=== PATIENT | female | born 1965 | race Caucasian/White ===

== ENCOUNTER 2020-10-26 10:46 | Emergency (ER) | payer SELFPAY ==
--- NOTE | ~2020-10-26 | CT_ITS ---
EXAMINATION: CT abdomen pelvis w con EXAM DATE: 10/26/2020 13:08 INDICATION: Epigastric pain. TECHNIQUE: Spiral CT of the abdomen and pelvis was performed following intravenous injection of 100 m L Omnipaque 350. Axial, coronal and sagittal images of the abdomen and pelvis were reviewed. The do se-length product (DLP) for this examination was 1485.14 mGy-cm. The exposure was tailored according to patient size (auto mA exposure control), and iterative reconstruction (ASIR) was used as addition al dose reduction technique. There is no prior study for comparison. FINDINGS: The liver, spleen, adrenal glands and pancreas are unremarkable. There are cholecystectomy clips. Portal and splenic veins are patent. Kidneys enhance symmetrically. There is no hydronephr osis. The uterus is not identified and has likely been surgically resected. The bladder is unremar kable. There is no retroperitoneal or pelvic lymphadenopathy. The appendix is not positively visualized. There is no pericecal inflammatory change to suggest appe ndicitis. The stomach and small bowel are unremarkable. There is colonic fluid, correlate for diar loli. There is mild to moderate sigmoid colonic diverticulosis. There is no adjacent inflammatory ch avani to suggest diverticulitis. No free intraperitoneal gas. The heart is normal in size. There a re no pericardial or pleural effusions. Left lower lobe calcified granuloma. There are no osteoblas tic or osteolytic lesions identified. IMPRESSION: 1. Colonic fluid, correlate for diarrhea. 2. Mild to moderate colonic diverticulosis. Reviewed, dictated and finalized at location A.
[2020-10-26 10:47] VITALS: BP 143/79; PULSE 65; RESP 18; TEMP 37.1; O2SAT 96
[2020-10-26 11:13] LABS: Basophils Percent Auto 0.3 % (0.2-1.2); Eosinophils Absolute Auto 2.9 K/mm3 (0-0.3); Eosinophils Percent Auto 19.5 % (0-4.4); Immature Granulocyte Absolute 0.06 K/mm3 (0.00-0.031); Immature Granulocyte Percent A 0.4 % (0-0.5); Lymphocytes Percent Auto 11.4 % (18.3-44.2); Mean Corpuscular HGB Conc 32.6 g/dl (32-36); Mean Corpuscular Hemoglobin 26.6 pg (26-34); Mean Corpuscular Volume 81.6 fl (80-100); Mean Platelet Volume 10.7 fl (7.4-10.4); Monocytes Absolute Auto 0.6 K/mm3 (0.1-0.6); Neutrophils Absolute Auto 9.6 K/mm3 (1.3-6.7); Neutrophils Percent Auto 64.4 % (45.5-73.1); Platelet Count Result 276 k/mm3 (150-375); Red Blood Count 5.64 M/mm3 (4.2-5.4); Red Cell Distribution Width 14.4 % (11.5-14.5); White Blood Count 14.9 K/mm3 (4.5-10.0)
[2020-10-26 11:15] LABS: Alanine Aminotransferase 24 U/L (4-35); Albumin Level 4.6 g/dL (3.5-5.1); Alkaline Phosphatase 86 U/L (38-126); Anion Gap 8 mmol/L (8-16); Aspartate Amino Transferase 24 U/L (14-36); Bilirubin,Total 0.4 mg/dL (0.2-1.3); Blood Urea Nitrogen 23 mg/dL (7-17); Calcium 9.5 mg/dL (8.4-10.2); Carbon Dioxide 25 mmol/L (22-30); Chloride 109 mmol/L (98-107); Estimated CRCL calculation 75 ml/min; Estimated Glomerular Filt Rate 58; Glucose 115 mg/dL (65-105); Lipase 69 U/L (23-300); Potassium 3.7 mmol/L (3.4-5.0); Sodium 142 mmol/L (137-145)
[2020-10-26 11:27] LABS: Appearance Urine Clear (Clear); Bilirubin Urine 1+ (Negative); Blood Urine Trace-lysed (Negative); Color Urine Yellow (Yellow); Glucose Urine UA Negative (Negative); Ketones Urine Trace mg/dL (Negative); Leukocyte Esterase Ur 2+ LEU/UL (Negative); Nitrate Urine Negative (Negative); Protein Urine 1+ mg/dL (Negative); Specific Grav Ur >= 1.030 (1.001-1.035); Urobilinogen Urine 0.2 mg/dL (<2.0); pH Urine 5.5 (5.0-9.0)
[2020-10-26 11:36] LABS: Add Urine Microscopic? YES
[2020-10-26 11:38] LABS: RBC Urine 0-2 /hpf (0-2); Squamous Epithelial Cell Urine Few /hpf (Few)
[2020-10-26 12:27] VITALS: BP 129/78; PULSE 61; RESP 21; O2SAT 98
[2020-10-26 12:37] VITALS: BP 128/90; BP 129/78; BP 148/87; PULSE 61; PULSE 74; PULSE 84
--- NOTE | 2020-10-26 12:46 | ED.GENADULT ---
HPI - General Adult General Chief complaint: Nausea/Vomiting/Diarrhea Stated complaint: n/v/d abd pain Time Seen by Provider: 10/26/20 12:27 Source: patient and RN notes reviewed Mode of arrival: ambulatory History of Present Illness HPI narrative: Patient is 55 years old white female presents with epigastric pain and diarrhea for the last 3 days. Patient reports the above symptoms get worse with exertion, get better at rest. Patient denies any fever, chills, vomiting. History of cholecystectomy 30 years ago. Patient drove herself to the emergency room. Related Data Home Medications Medication Instructions Recorded Confirmed meloxicam 10/26/20 10/26/20 Allergies Allergy/AdvReac Type Severity Reaction Status Date / Time No Known Allergies Allergy Unverified 10/26/20 10:50 Review of Systems Review of Systems: Narrative: CONSTITUTIONAL: Denies fever, chills, or sweats. EYES: Denies visual changes, redness, or discharge. ENT: Denies rhinorrhea, congestion, sore throat, or otalgia. CARDIOVASCULAR: Denies chest pain, palpitations, or edema. RESPIRATORY: Denies cough or dyspnea. GASTROINTESTINAL: Denies abdominal pain, nausea, vomiting, or diarrhea. GENITOURINARY: Denies dysuria or hematuria. SKIN: Denies rash or itching. MUSCULOSKELETAL: Denies back pain, joint pain, or myalgia. NEUROLOGIC: Denies headache, numbness, or weakness. PSYCHIATRIC: Denies anxiety or depression. [facility] Family History Family History Other Diabetes mellitus Family history of coronary artery disease Hypertension Social History Social History Smoking status: Former smoker Smoking end date: 07/16/06 Alcohol intake: never Gender identity (if verbalized by the patient): Female Exam Narrative: Exam Narrative: General appearance: Well-developed, well-nourished Skin: Normal color Head: Normocephalic, nontraumatic Eyes: Clear conjunctiva ENT: Oropharynx normal, ears normal, nose normal Neck: Supple, nontender Chest and respiratory: Airway patent, no respiratory distress, no accessory muscle use Heart: Regular rate/rhythm Abdomen: Soft, mild tenderness of the epigastric area. , no organomegaly, quiet bowel sounds Vascular: Normal peripheral pulses, normal capillary refill. Musculoskeletal: Normal range of motion, nontender back Neurologic: Alert and oriented ?3, [employer] is normal as tested, no gross motor deficit Course Course Emergency Course: Stable Vital Signs Vital signs: Vital Signs Temperature 37.1 C 10/26/20 10:47 Pulse Rate 65 10/26/20 10:47 Respiratory Rate 18 10/26/20 10:47 Blood Pressure 143/79 H 10/26/20 10:47 Pulse Oximetry 96 10/26/20 10:47 Temperature 37.1 C 10/26/20 10:47 Pulse Rate 84 10/26/20 12:37 Respiratory Rate 21 H 10/26/20 12:27 Blood Pressure 148/87 H 10/26/20 12:37 Pulse Oximetry 98 10/26/20 12:27 Medical Decision Making MDM Narrative Medical decision making narrative: Patient presents with epigastric pain. Pancreatitis, stress related symptoms, gastroenteritis, GERD are my concern. Labs, CT abdomen pelvis with IV contrast, IV fluid ordered. Further plan to follow Differential Diagnosis Differential Diagnosis: Pancreatitis, gastritis, gastroenteritis, anxiety related symptoms Vital Signs Vital Signs: Vital Signs Temperature 37.1 C 10/26/20 10:47 Pulse Rate 65 10/26/20 10:47 Respiratory Rate 18 10/26/20 10:47 Blood Pressure 143/79 H 10/26/20 10:47 Pulse Oximetry 96 10/26/20 10:47 Temperature 37.1 C 10/26/20 10:47 Pulse Rate 84 10/26/20 12:37 Respirato
[2020-10-26] MEDS: SODIUM CHLORIDE 0.9% IV 1,000 ML 999 ML IV CONT (12:50)
[2020-10-26 14:28] VITALS: BP 128/92; PULSE 67; RESP 12; O2SAT 100
== END 2020-10-26 14:35 | disposition home or self-care (01) ==
PROVIDERS: Emergency Provider Emergency Medicine; PCP Family Medicine
DX: K52.9 Noninfective gastroenteritis and colitis, unspecified (principal)
CPT/HCPCS: 36415; 74177; 80053; 81001; 83690; 85025; 87040; 96360; 99284; J7030; Q9967